=== PATIENT | male | born 1960 | race Caucasian/White ===

== ENCOUNTER → 2018-11-15 11:30 | Outpatient (CLI) | payer OTHER, SELFPAY ==
[2018-11-05 13:09] VITALS: BMI 34.4
[2018-11-15 11:57] VITALS: BP 145/97; PULSE 82; RESP 16; TEMP 36.9; O2SAT 94; BMI 33.7
--- NOTE | 2018-11-15 12:54 | HTC.HP3 ---
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 Comes in for follow up. Having Right hip surgery next week, has replacement plan. Needed Factor replacement for the left hip replacement last yr. Power of Small Products I Assembler: Yes Living Will: Yes Health History: Past Medical History Past Medical History: Bleeding disorder Other Past Medical History: ULCERATIVE COLITIS Past Surgical History Surgical: Colonoscopy,Hip replacement,Rotator cuff repair Family History Paternal Past Medical History: Unknown Maternal Past Medical History: Hypertension Past Medical History (Last Reviewed 11/15/18 @ 11:51 by Aishwarya Will) Ulcerative colitis (Acute) Past Surgical History (Last Reviewed 11/15/18 @ 11:52 by Aishwarya Will) History of colonoscopy (Acute) History of hip replacement (Acute) History of repair of rotator cuff (Acute) Family History (Last Reviewed 11/15/18 @ 11:52 by Aishwarya Will) Mother Hypertension Allergies/Adverse Reactions: Allergy/AdvReac Type Severity Reaction Status Date / Time aspirin AdvReac Severe BLEEDING Verified 11/15/18 11:51 Risk Factors Social History Social History: No changes Smoking Status Former smoker Tobacco Risk Data: Tobacco Risk Smoking Status Former smoker Type of tobacco: Smokeless tobacco usage: Never Items/Day: Year started: Years used: 20 Counseled to quit/cut down: Reason for no counseling performed: Reason for no pharmacotherapy: Tobacco use comments: Passive smoke exposure: No Substance Risk Drug use: No Caffeine use [drinks/day]: 4 Alcohol use: Yes Type of alcohol: shot of whiskey rarely Drinks per day: Has patient felt the need to cut down: Has the patient been annoyed by complaints: Has the patient felt guilty about drinking: Has the patient needed an eye mortgage clerk in the mornings: Comments: Review of Systems Constitutional:: Denies: Fever, Sweats, Weight loss, Appetite change, Chills Cardiovascular:: Denies: Chest pain, Palpitations, Dyspnea on exertion, Orthopnea, PND, Shortness of breath Respiratory: Denies: Cough, Hemoptysis, Shortness of Breath, Wheezing Gastrointestinal:: Denies: Abdominal pain, Nausea, Vomiting, Diarrhea, Constipation, Hematochezia Genitourinary: Denies: Dysuria, Hematuria, 15, Flank pain Musculoskeletal:: Reports: Joint stiffness - R hip. Vital Signs Height 5 ft 10 in Weight: 106.776 kg Weight in Pounds 235.4 lbs Pulse Ox 94 Temperature 98.4 F Pulse Rate 82 Respiratory Rate 16 Blood Pressure 145/97 Blood Pressure Position Sitting - Physical Exam General: Alert, Oriented x3, No apparent distress HEENT: Atraumatic, PERRLA, EOMI, Normocephalic Oropharynx:: Dry mucosa Neck:: Supple, Trachea midline. Negative for: JVD, bilateral Cardiac:: Regular rate, Regular rhythm, Normal S1, Normal S2. Negative for: Murmur Lungs: Clear to auscultation, Excusion symmetrical. Negative for: Rhonchi, Wheezes Abdomen:: Bowel sounds x 4, Soft, Non-tender, Non-distended. Negative for: Hepatosplenomegaly Neurological: - - Walking with a R limp. Lymphatics:: Negative for: Cervical lymphadenopathy, Supraclavicular lymphadenopathy, Axillary lymphadenopathy Therapy ROM Screening - Subjective Subjective:: Pt states he is doing well- states sunday he is having THR. - Objective Right shoulder flex:: 165 Left shoulder flex:: 163 Right shoulder extension:: 50 Left shoulder extension:: 50 Right elbox flex/ext:: 140/0 Left elbox flex/ext:: 140/0 Right elbow circumference:: 28cm Left elbow circumference:: 29cm Right forearm sup/pron:: WNL Left forearm sup/pron:: WNL Right knee flexion:: 110 Left knee flexion:: 113 Right knee circumference:: 38cm Left knee circumference:: 38.5cm Right ankle dorsiflexion:: 20 Left ankle dorsiflexion:: 20 Right ankle Plan-flex:: 45 Left ankle Plan-flex:: 45 Right ankle circumference:: 25cm Left ankle circumference:: 25cm Right hip flexion:: 70 Left hip flexion:: 85 Right hip extension:: 15 Left hip extension:: 15 - Assessment Assessment:: Pt demo ROM WFL. right hip limited but having sx Sunday. Assessment and Plan Hemophilia B. Right arthropathy, for hip replacement. Plan is to do expectant management with factor replacement as needed. Follow replacement plan after surgery. RTC 1 yr. Primary Care Provider: Rob Rodriguez, WAREHOUSE SHIFT SUPERVISOR-C Referring Provider:
--- NOTE | 2018-11-15 13:02 | WMO.HTC_ITS ---
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 Comes in for follow up. Having Right hip surgery ne xt week, has replacement plan. Needed Factor replacement for the left hip replacement last yr. Power of Project Controls Scheduler: Yes Living Will: Yes Health History: Past Medical History Past Medical History: Bleeding disorder Other Past Medical History: ULCERATIVE COLITIS Past Surgical History Surgical: Colonoscopy,Hip replacement,Rotator cuff repair Family History Paternal Past Medical History: Unknown Maternal Past Medical History: Hypertension Past Medical History (Last Reviewed 11/15/18 @ 11:51 by Aishwarya Will) Ulcerative colitis (Acute) Past Surgical History (Last Reviewed 11/15/18 @ 11:52 by Aishwarya Will) History of colonoscopy (Acute) History of hip replacement (Acute) History of repair of rotator cuff (Acute) Family History (Last Reviewed 11/15/18 @ 11:52 by Aishwarya Will) Mother Hypertension Allergies/Adverse Reactions: Allergy/AdvReac Type Severity Reaction Status Date / Time aspirin AdvReac Severe BLEEDING Verified 11/15/18 11:51 Risk Factors Social History Social History: No changes Smoking Status Former smoker Tobacco Risk Data: Tobacco Risk Smoking Status Former smoker Type of tobacco: Smokeless tobacco usage: Never Items/Day: Year started: Years used: 20 Counseled to quit/cut down: Reason for no counseling performed: Reason for no pharmacotherapy: Tobacco use comments: Passive smoke exposure: No Substance Risk Drug use: No Caffeine use [drinks/day]: 4 Alcohol use: Yes Type of alcohol: shot of whiskey rarely Drinks per day: Has patient felt the need to cut down: Has the patient been annoyed by complaints: Has the patient felt guilty about drinking: Has the patient needed an eye oyster opener in the mornings: Comments: Review of Systems Constitutional:: Denies: Fever, Sweats, Weight loss, Appetite change, Chills Cardiovascular:: Denies: Chest pain, Palpitations, Dyspnea on exertion, Orthopnea, PND, Shortness of breath Respiratory: Denies: Cough, Hemoptysis, Shortness of Breath, Wheezing Gastrointestinal:: Denies: Abdominal pain, Nausea, Vomiting, Diarrhea, Constipation, Hematochezia Genitourinary: Denies: Dysuria, Hematuria, 15, Flank pain Musculoskeletal:: Reports: Joint stiffness - R hip. Vital Signs Height 5 ft 10 in Weight: 106.776 kg Weight in Pounds 235.4 lbs Pulse Ox 94 Temperature 98.4 F Pulse Rate 82 Respiratory Rate 16 Blood Pressure 145/97 Blood Pressure Position Sitting - Physical Exam General: Alert, Oriented x3, No apparent distress HEENT: Atraumatic, PERRLA, EOMI, Normocephalic Oropharynx:: Dry mucosa Neck:: Supple, Trachea midline. Negative for: JVD, bilateral Cardiac:: Regular rate, Regular rhythm, Normal S1, Normal S2. Negative for: Murmur Lungs: Clear to auscultation, Excusion symmetrical. Negative for: Rhonchi, Wheezes Abdomen:: Bowel sounds x 4, Soft, Non-tender, Non-distended. Negative for: Hepatosplenomegaly Neurological: - - Walking with a R limp. Lymphatics:: Negative for: Cervical lymphadenopathy, Supraclavicular lymphadenopathy, Axillary lymphadenopathy Therapy ROM Screening - Subjective Subjective:: Pt states he is doing well- states sunday he is having THR. - Objective Right shoulder flex:: 165 Left shoulder flex:: 163 Right shoulder extension:: 50 Left shoulder extension:: 50 Right elbox flex/ext:: 140/0 Left elbox flex/ext:: 140/0 Right elbow circumference:: 28cm Left elbow circumference:: 29cm Right forearm sup/pron:: WNL Left forearm sup/pron:: WNL Right knee flexion:: 110 Left knee flexion:: 113 Right knee circumference:: 38cm Left knee circumference:: 38.5cm Right ankle dorsiflexion:: 20 Left ankle dorsiflexion:: 20 Right ankle Plan-flex:: 45 Left ankle Plan-flex:: 45 Right ankle circumference:: 25cm Left ankle circumference:: 25cm Right hip flexion:: 70 Left hip flexion:: 85 Right hip extension:: 15 Left hip extension:: 15 - Assessment Assessment:: Pt demo ROM WFL. right hip limited but having sx Sunday. Assessment and Plan Hemophilia B. Right arthropathy, for hip replacement. Plan is to do expectant management with factor replacement as needed. Follow replacement plan after surgery. RTC 1 yr. Primary Care Provider: Rob Rodriguez, C DEVELOPER-C Referring Provider:
== END ==
PROVIDERS: Family Provider Nurse Practitioner Family; PCP Nurse Practitioner Family; Visit Provider Internal Medicine Medical Oncology
DX: D67 Hereditary factor IX deficiency (principal)

== ENCOUNTER → 2018-12-13 | Outpatient (CLI) | payer OTHER, SELFPAY ==
[2018-11-05 13:09] VITALS: BP 159/87; PULSE 84; RESP 16; TEMP 36.6; O2SAT 94; BMI 34.4
--- NOTE | 2018-11-05 13:15 | SDCEKG_ITS ---
Test Reason : Blood Pressure : / mmHG Vent. Rate : 085 BPM Atrial Rate : 085 BPM P-R Int : 166 ms QRS Dur : 098 ms QT Int : 376 ms P-R-T Axes : 037 057 013 degrees QTc Int : 447 ms Normal sinus rhythm Cannot rule out Inferior infarct , age undetermined Abnormal ECG Confirmed by NIELS SPANGLER, JORGE ALBERTO ([id number]), magazine editor YUE RAMOS ([id number]) on 11/08/2018 3:38:05 PM Referred By: Brett Glover Confirmed By:JORGE ALBERTO BOWSER MD
[2018-11-05 14:00] LABS: Hematocrit 45.2 % (40-54); Hemoglobin 15.2 g/dl (13.0-16.5); Mean Corp Hgb Conc 33.6 g/gl (32-36); Mean Corpuscular Hgb 29.2 pg (27.0-32.0); Mean Corpuscular Volume 86.9 fL (80-94); Mean Platelet Vol. 10.2 fl (6.2-12.0); Platelet Count 188 K/mm3 (150-450); RBC Distribution Width CV 13.5 % (11.6-14.6); RBC Distribution Width SD 42.6 fl (35.1-43.9); White Blood Count 4.7 K/mm3 (4.4-11.0)
[2018-11-05 14:02] LABS: Scan Indicated on CBC? Y/N NO
[2018-11-05 14:03] LABS: International Normalized Ratio 0.9; Prothrombin Time (Protime)PT. 12.2 SECONDS (11.7-14.9)
[2018-11-05 14:05] LABS: Partial Thromboplast Time 42.3 Seconds (24.1-36.2)
[2018-11-05 14:13] LABS: AST(SGOT) 28 U/L (15-37); Alanine Aminotransfer ALT/SGPT 34 U/L (16-61); Albumin, Serum 3.8 g/dL (3.2-5.0); Alkaline Phosphatase 63 U/L (45-117); Anion Gap 7 (5-15); BUN 12 mg/dL (7-18); BUN/Creat Ratio 12.3 RATIO (10-20); Calcium,Total 8.8 mg/dL (8.5-10.1); Chloride 100 mmol/L (98-107); Creatinine, Serum 0.98 mg/dL (0.70-1.30); EST Glomerular Filtration Rate 84 mL/min (>60); Est Glom Filt Rate - Afr Amer 102 mL/min (>60); Globulin 4.4 g/dL (2.2-4.2); Glucose 93 mg/dL (74-106); Potassium 3.2 mmol/L (3.5-5.1); Protein, Total 8.2 g/dL (6.4-8.2); Sodium Level 138 mmol/L (136-145)
[2018-11-05 14:41] LABS: Thyroid Stim Hormone (TSH) 2.47 uIU/mL (0.358-3.74)
[2018-11-15 11:57] VITALS: BMI 33.7
--- NOTE | 2018-11-28 11:14 | CASEMGMT ---
Call placed to patient to discuss discharge needs after upcoming surgery. Per patient, surgery was canceled. Arlen Cruz LPN Clinical Support
== END | disposition home or self-care (01) ==
LOC: SDC 10:37
PROVIDERS: Anesthesiology; Family Provider Nurse Practitioner Family; PCP Nurse Practitioner Family; Referring Provider Orthopaedic Surgery; Visit Provider Orthopaedic Surgery
DX: Z01.810 Encounter for preprocedural cardiovascular examination (principal); Z01.812 Encounter for preprocedural laboratory examination; Z53.9 Procedure and treatment not carried out, unspecified reason; R94.31 Abnormal electrocardiogram [ECG] [EKG]
CPT/HCPCS: 80048; 80076; 84443; 85027; 85610; 85730; 87077; 87081; 93005

== ENCOUNTER → 2023-12-14 | Outpatient (CLI) | payer OTHER, SELFPAY ==
--- OUTSIDE RECORDS SUMMARY | 2023-12-14 10:27 | XMS RPT_ITS | CCD ---
Author Name Unknown Address [address] [place] [address] Organization [facility] Care Team Providers Care Application Packager Name Role Phone LARA RAMOS DR Admitting Unavailable LARA RAMOS DR Attending Unavailable LARA RAMOS DR Primary Care Unavailable SERENE ATKINSON Consulting Unavailable PROVIDER, UNKNOWN Consulting Unavailable LARA RAMOS DR Admitting Unavailable LARA RAMOS DR Attending Unavailable LARA RAMOS DR Primary Care Unavailable SERENE ATKINSON Consulting Unavailable PROVIDER, UNKNOWN Consulting Unavailable LARA RAMOS DR Admitting Unavailable LARA RAMOS DR Attending Unavailable LARA RAMOS DR Primary Care Unavailable SERENE ATKINSON Consulting Unavailable PROVIDER, UNKNOWN Consulting Unavailable LARA RAMOS DR Admitting Unavailable LARA RAMOS DR Attending Unavailable LARA RAMOS DR Primary Care Unavailable SERENE ATKINSON Consulting Unavailable PROVIDER, UNKNOWN Consulting Unavailable LARA RAMOS DR Admitting Unavailable LARA RAMOS DR Attending Unavailable LARA RAMOS DR Primary Care Unavailable SERENE ATKINSON Consulting Unavailable SERENE ATKINSON D Referring Unavailable PROVIDER, UNKNOWN Consulting Unavailable MAINOR ONEAL MD Admitting Unavailable MAINOR ONEAL MD Attending Unavailable MAINOR ONEAL MD Primary Care Unavailable SERENE ATKINSON Consulting Unavailable PROVIDER, UNKNOWN Consulting Unavailable MAINOR ONEAL MD Admitting Unavailable MAINOR ONEAL MD Attending Unavailable MAINOR ONEAL MD Primary Care Unavailable SERENE ATKINSON Consulting Unavailable PROVIDER, UNKNOWN Consulting Unavailable LARA RAMOS DR Admitting Unavailable LARA RAMOS DR Attending Unavailable LARA RAMOS DR Primary Care Unavailable SERENE ATKINSON Consulting Unavailable PROVIDER, UNKNOWN Consulting Unavailable DEMETRIOSERENE KIM APRN, CNP Primary Care Phys ician JEAN MARIE DEMARCO Attending Unavailable SERENE ATKINSON Primary Care Unavailable DEMETRIO SERENE Referring Unavailable DEMETRIO FERREIRA - RUDOLPH, SERENE Robles Attending U yasmany ATKINSON APRN - RUDOLPH, SERENE Robles Primary Care U yasmany ATKINSON APRN - RUDOLPH, SERENE Robles Attending U yasmany ATKINSON APRN - RUDOLPH, SERENE Robles Primary Care U karenailable DEMETRIO SALCEDON - DIESEL ENGINE PIPE FITTER, SERENE Robles Primary Care U karenailable DEMETRIO FERREIRA - RUDOLPH, SERENE Robles Attending U [facility] Allergies Allergy Classification Reported Allergen(s) Allergy Type Date of Onset Reaction(s) Facility (7 sources) Aspirin; Translations: [aspirin] Drug Allergy Contraindicated (qualifier value) [facility] Work Phone: Medications Current Medications Medication Drug Class(es) Dates Sig (Normalized) Sig (Original) Asacol HD 800 mg oral delayed release tablet (1 source) Start: 05-09-2018 take 3 capsules by mouth twice daily Asacol HD 800 mg oral delayed release tablet 3 cap(s), Oral, BID, # 252 tab(s), 0 Refill(s) Start Date: 05/09/18 Status: Ordered cholecalciferol 1.25 mg oral capsule (1 source) Vitamin D Start: 10-11-2023 End: 04-08-2024 cholecalciferol 1250 mcg (50,000 intl units) oral capsule Dose : 50,000 International_Unit = 1 cap(s), Oral, qmonth, # 4 cap(s), 1 Refill(s), Pharmacy: [facility], Vitamin D deficiency, 176.5, cm, 10/11/23 7:45:00 EST, Height, kg, 10/11/23 7:45:00 EST, Dosing Weight Start Date: 10/11/23 Stop Date: 04/08/24 Status: Ordered esomeprazole 40 mg delayed release oral capsule (6 sources) Proton Pump Inhibitor Start: 10-11-2023 End: 04-08-2024 esomeprazole 40 mg oral delayed release capsule Dose : 40 mg = 1 cap(s), Oral, qDay, # 90 cap(s), 1 Refill(s), Pharmacy: [facility], GERD (gastroesophageal reflux disease), 176.5, cm, 10/11/23 7:45:00 EST, Height, kg, 10/11/23 7:45:00 EST, Dosing Weight Start Date: 10/11/23 Stop Date: 04/08/24 Status: Ordered Completed/Discontinued Medications Medication Drug Class(es) Dates Sig (Normalized) Sig (Original) Vitamin D3 25 mcg (1000 intl units) oral tablet (1 source) Start: 03-29-2023 End: 04-28-2023 Vitamin D3 25 mcg (1000 intl units) oral tablet Dose : 1,000 International_Unit = 1 tab(s), Oral, qDay, OTC, # 30 tab(s), 0 Refill(s), other reason (Rx), Vitamin D deficiency Start Date: 03/29/23 Stop Date: 04/28/23 Status: Ordered Problems Problem Classification Problem Date Documented Da te Episodic/Chronic Coagulation and hemorrhagic disorders (12 sources) Hereditary factor IX deficiency; 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] Onset: 9 03-31-2016 Chronic Disorders of lipid metabolism (10 sources) Hyperlipidemia, unspecified; Translations: [Hyperlipidemia] Onset: 9 05-13-2019 Chronic Disorders of lipid metabolism (1 source) Pure hypercholesterolemia, unspecified; Translations: [Pure hypercholesterolemia, unspecified] Onset: 9 Esophageal disorders (7 sources) Gastroesophageal reflux disease 05-12-2019 Chronic Essential hypertension (10 sources) Essential (primary) hypertension; Translations: [Hypertensive disorder] Onset: 9 05-13-2019 Chronic Fluid and electrolyte disorders (2 sources) Hypokalemia; Translations: [Hypokalemia] Onset: 9 Episodic Nutritional deficiencies (5 sources) Vitamin D deficiency 01-26-2022 Chronic Osteoarthritis (10 sources) Unilateral primary osteoarthritis, right hip; Translations: [Osteoarthritis of multiple joints ] Onset: 9 05-13-2019 Chronic Other connective tissue disease (3 sources) Pain in right lower leg; Translations: [Pain in right lower leg] Onset: 9 Episodic Other gastrointestinal disorders (7 sources) H/O: ulcerative colitis 05-13-2019 Episodic Other hematologic conditions (7 sources) H/O: coagulation defect 05-13-2019 Episodic Other non-traumatic joint disorders (2 sources) Pain in right hip; Translations: [Pain in right hip] Onset: 9 Episodic Other nutritional; endocrine; and metabolic disorders (2 sources) Body mass index 30+ - obesity 03-29-2023 Chronic Other nutritional; endocrine; and metabolic disorders (5 sources) Overweight 05-12-2019 Episodic Other screening for suspected conditions (not mental disorders or infectious disease) (2 sources) Encounter for screening for malignant neoplasm of prostate; Translations: [Encounter for screening for malignant neoplasm of prostate] Onset: 3 Episodic Regional enteritis and ulcerative colitis (8 sources) Ulcerative colitis, unspecified, without complications; Translations: [Ulcerative colitis] Onset: 9 05-13-2019 Chronic Screening and history of mental health and substance abuse codes (1 source) Personal history of nicotine dependence; Translations: [Personal history of nicotine dependence] Onset: 9 Episodic Thyroid disorders (9 sources) Hypothyroidism; Translations: [Hypothyroidism, unspecified] Onset: 3 05-09-2018 Chronic Thyroid disorders (1 source) Disorder of thyroid, unspecified; Translations: [Disorder of thyroid, unspecified] Onset: 9 Episodic Unclassified (7 sources) Patient encounter status 06-01-2020 Unclassified (7 sources) Non-smoker 01-26-2022 Results Test Name Value Interpretation Reference Range Facil ity Encounters Encounter Date Encounter Type Care Provider Facility Start: 10-11-2023 End: 10-16-2023 ambulatory SERENE ATKINSON GEOSPATIAL INFORMATION SCIENTIST - DIESEL ENGINE PIPE FITTER Facility:B Start: 10-11-2023 End: 10-15-2023 Outreach Lab SERENE ATKINSON GEOSPATIAL INFORMATION SCIENTIST - DIESEL ENGINE PIPE FITTER [facility] Start: 09-20-2023 End: 09-25-2023 ambulatory SERENE ATKINSON GEOSPATIAL INFORMATION SCIENTIST - DIESEL ENGINE PIPE FITTER Facility:B Start: 09-20-2023 End: 09-24-2023 Outreach Lab SERENE ATKINSON GEOSPATIAL INFORMATION SCIENTIST - DIESEL ENGINE PIPE FITTER [facility] Start: 08-24-2023 ambulatory JEAN MARIE Rubio ty:[facility]IP[facility] Start: 03-22-2023 End: 03-23-2023 ambulatory SERENE ATKINSON GEOSPATIAL INFORMATION SCIENTIST - DIESEL ENGINE PIPE FITTER Facility:B Start: 03-22-2023 End: 03-22-2023 Patient encounter procedure SERENE ATKINSON GEOSPATIAL INFORMATION SCIENTIST - DIESEL ENGINE PIPE FITTER [facility] Start: 09-14-2022 End: 09-18-2022 Outreach Lab SERENE ATKINSON GEOSPATIAL INFORMATION SCIENTIST - DIESEL ENGINE PIPE FITTER [facility] Start: 09-14-2022 End: 09-18-2022 Outreach Lab SERENE ATKINSON GEOSPATIAL INFORMATION SCIENTIST - DIESEL ENGINE PIPE FITTER [facility] Start: 01-19-2022 End: 01-23-2022 Outreach Lab SERENE ATKINSON GEOSPATIAL INFORMATION SCIENTIST - DIESEL ENGINE PIPE FITTER [facility] Start: 07-22-2021 End: 07-26-2021 Outreach Lab SERENE ATKINSON GEOSPATIAL INFORMATION SCIENTIST - DIESEL ENGINE PIPE FITTER [facility] Start: 03-13-2019 End: 03-13-2019 Patient encounter procedure LARA RAMOS [facility] Start: 03-10-2019 End: 03-11-2019 Evaluation and management of inpatient LARA RAMOS [facility] Start: 03-07-2019 End: 03-07-2019 Patient encounter procedure MAINOR SPANGLER [facility] Start: 03-05-2019 End: 03-05-2019 Patient encounter procedure MAINOR SPANGLER [facility] Start: 02-25-2019 Encounter for other preprocedural examination LARA RAMOS [facility] Start: 02-25-2019 End: 02-25-2019 Patient encounter procedure LARA RAMOS [facility] Start: 12-26-2018 End: 12-26-2018 Patient encounter procedure LARA RAMOS [facility] Start: 12-17-2018 Encounter for preprocedural cardiovascular examination LARA RAMOS [facility] Start: 12-17-2018 End: 12-17-2018 Patient encounter procedure LARALAN RAMOS [facility] Encounter for other preprocedural examination LARA RAMOS [facility] Encounter for preprocedural cardiovascular examination LARA RAMOS [facility] Procedures Date Procedure Procedure Detail Performing Clinician Start: 03-10-2019 Insertion of Infusion Device into Superior Vena Cava, Percutaneous Approach LARA RAMOS Start: 03-10-2019 Replacement of Right Hip Joint with Synthetic Substitute, Uncemented, Open Approach LARA RAMOS Start: 10-08-2016 Colonoscopy SERENE RIOSPKINS GEOSPATIAL INFORMATION SCIENTIST - DIESEL ENGINE PIPE FITTER Start: 10-08-2015 Esophagogastroduodenoscopy SERENE RIOSLACEY BEDOYA GEOSPATIAL INFORMATION SCIENTIST - DIESEL ENGINE PIPE FITTER Start: 10-08-2012 Repair of hip SERENE RIOSPKINS GEOSPATIAL INFORMATION SCIENTIST - DIESEL ENGINE PIPE FITTER Payers Date Payer Category Payer Unknown [id number] 1960 Unknown [id number] 2.16.8 [id number] 1960 Unknown [id number] 2.16.8 [id number] 1960 Unknown [id number] 2.16.8 [id number] 1960 Unknown [id number] 2.16.84 [id number] 1960 Unknown [id number] 2.16.84 [id number] 1960 Unknown [id number] 2.16.84 [id number] 1960 Unknown [id number] 2.16.84 [id number] 1960 Unknown [id number] 2.16.84 [id number] 1960 Unknown [id number] 2.16.84 [id number] 1960 Unknown [id number] 2.16.84 [id number] 1960 Unknown [id number] 2.16.84 [id number] Unknown Unknown 116 Social History Date Type Detail Facility Start: 05-13-2019 End: 10-11-2023 Ex-smoker (finding) [facility] Evaluation + Plan note Note Date & Type Note Facility Evaluation + Plan note Future Appointments Appointment Date:07/28/2021 08:20:00 AM Scheduled Provider:SERENE ATKINSON APRN, CNP Location:[facility] Appointment Type:PC OV Follow Up [facility] Evaluation + Plan note Note Date & Type Note Facility Evaluation + Plan note Future Appointments Appointment Date:01/26/2022 08:20:00 AM Scheduled Provider:SERENE ATKINSON APRN - RUDOLPH Location:[facility] Appointment Type:PC OV Follow Up [facility] Evaluation + Plan note Laboratory Note Date & Type Note Facility Evaluation + Plan note Future Appointments Appointment Date:09/21/2022 09:40:00 AM Scheduled Provider:SERENE ATKINSON APRN - DIESEL ENGINE PIPE FITTER Location:[facility] Appointment Type:PC OV Follow Up Future Scheduled TestsMicroalbumin Level Urine 07/28/22 [facility] Evaluation + Plan note Laboratory Note Date & Type Note Facility Evaluation + Plan note Future Appointments Appointment Date:03/29/2023 08:20:00 AM Scheduled Provider:SERENE ATKINSON APRN - DIESEL ENGINE PIPE FITTER Location:[facility] Appointment Type:PC OV Follow Up Diagnostic Tests PendingVitamin D Level 03/22/23 Future Scheduled TestsMicroalbumin Level Urine 07/28/22 [facility] Evaluation + Plan note Laboratory Note Date & Type Note Facility Evaluation + Plan note Future Appointments Appointment Date:10/11/2023 07:40:00 AM Scheduled Provider:SERENE ATKINSON APRN, CNP Location:[facility] Appointment Type:PC OV Follow Up Future Scheduled TestsLyme Disease Serology w/Reflex 09/20/23 [facility] Evaluation + Plan note Laboratory Note Date & Type Note Facility Evaluation + Plan note Future Appointments Appointment Date:05/08/2024 08:00:00 AM Scheduled Provider: Location:[facility] Appointment Type:PC Nurse Lab Appointment Date:05/15/2024 07:00:00 AM Scheduled Provider:SERENE ATKINSON APRN, CNP Location:[facility] Appointment Type:PC OV Follow Up Future Scheduled TestsThyroid Stimulating Hormone 04/10/24Free T4 04/10/24Complete Blood Count 04/10/24Lipid Profile 04/10/24Albumin/Creatinine Ratio, Random Urine 04/10/24Vitamin D Level 04/10/24Complete Metabolic Panel 04/10/24 [facility] Hospital course Narrative Note Date & Type Note Facility Hospital course Narrative No data available for this section [facility] Hospital Discharge instructions Note Date & Type Note Facility Hospital Discharge instructions No data available for this section [facility] Progress note Note Date & Type Note Facility Progress note No data available for this section [facility] Summary Purpose Family History No Family History Records FoundNo Family History Records Found No data available for this section No data available for this section No Family History Records Found Advance Directives No Advanced Directives Records FoundNo Advanced Directives Records FoundNo Advanced Directives Records Found Hospital Course Note [facility] DISCHARGE SUMMARY NAME ACCOUNT SEX AGE ADMIT DISCHARGE PT MED. RECORD# NUMBER DATE DATE TYPE MONICA DRUMMOND [id number] M 58 03/10/19 1 M [id number] ROOM: [facility] DATE OF : 1960 DICTATING PHYSICIAN: Lara Ramos PROGRESS NOTE/DISCHARGE SUMMARY FINAL DIAGNOSES: 1. Right hip replacement for arthritis. 2. History of hemophilia. 3. Hypertension. 4. Ulcerative colitis. 5. High cholesterol. 6. Thyroid disease. PROCEDURES: Right hip replacement and PICC line insertion on March 10, 2019. HOSPITAL COURSE: The patient is postoperative day #1 from right hip replacement. He is feeling great. He denies chest pain. He denies shortness of breath. No current pain. He did have some pain yesterday ambulating. He feels ready for discharge to home today. He understands how to use his factor and his PICC line. He has been through hip replacement surgery before on the left. PHYSICAL EXAMINATION: He is seen with his present. He has been afebrile. TC is 97.9. Pulse oximetry is 93% on room a (more content not included)... Additional Source Comments (unrecognized sect ion and content) No Status Records FoundNo Status Records FoundNo Status Records Found INFORMATION SOURCE (unrecogn ized section and content) DATE CREATED AUTHOR AUTHOR'S ORGANIZ ATION 09/12/2023 [facility] DATE CREATED AUTHOR AUTHOR'S ORGANIZ ATION 10/16/2023 [facility] [place] Care Team (unrecognized sect ion and content) Personnel Name: SERENE ATKINSON APRN, CNP Address: [address] [place] [address]- Care Team Personnel Name: SERENE ATKINSON APRN, CNP Position: P4 Advanced Scraper Loader Operator Member Role: Primary Care Physician Address: Address: [address] [place] [address]- Care Team Related Persons Name: CLIFTON DRUMMOND Name: JEN DRUMMOND Address: [id number] [place], [place] [id number] Care Team Personnel Name: SERENE ATKINSON APRN, CNP Position: P4 Advanced Scraper Loader Operator Member Role: Primary Care Physician Address: Address: [address] [place] [address]- Care Team Related Persons Name: CLIFTON DRUMMOND Name: JEN DRUMMOND Address: Home [address] [place], [place] [id number] Care Team Personnel Name: SERENE ATKINSON GEOSPATIAL INFORMATION SCIENTIST - DIESEL ENGINE PIPE FITTER Position: P4 Advanced Scraper Loader Operator Member Role: Primary Care Physician Address: Address: [address] [place] [address] Care Team Related Persons Name: CLIFTON DRUMMOND Name: JEN DRUMMOND Address: [address] [phone] [place] Care Team (unrecognized sect ion and content) Care Team Personnel Name: SERENE ATKINSON GEOSPATIAL INFORMATION SCIENTIST - DIESEL ENGINE PIPE FITTER Position: P4 Advanced Practice Nurse Member Role: Primary Care Physician Address: Address: [address] [place] [address] Care Team Related Persons Name: CLIFTON DRUMMOND Name: JEN DRUMMOND Address: [address] [phone] [place] Care Team Personnel Name: SERENE ATKINSON GEOSPATIAL INFORMATION SCIENTIST - DIESEL ENGINE PIPE FITTER Position: P4 Advanced Practice Nurse Member Role: Primary Care Physician Address: Address: [address] [place] [address] Care Team Related Persons Name: CLIFTON DRUMMOND Name: JEN DRUMMOND Address: [address] [phone] [place] FOR RECORDS PERTAINING TO PATIENTS WHO ARE OR HAVE BEEN ENROLLED IN A CHEMICAL DEPENDENCY/SUBSTANCEABUSE PROGRAM, SOME INFORMATION MAY BE OMITTED. This clinical summary was aggregated from multiple sources. Caution should be exercised in using it in the provision of clinical care. This summary normalizes information from multiple sources, and as a consequence, information in this document may materially change the coding, format and clinical context of patient data. In addition, data may be omitted in some cases. CLINICAL DECISIONS SHOULD BE BASED ON THE PRIMARY CLINICAL RECORDS. [employer] provides no warranty or guarantee of the accuracy or completeness of information in this document.
[2023-12-14 12:02] LABS: Absolute Lymphocyte Count 1.37 X10^3/uL (0.83-4.51); Absolute Neutrophil Count 4.5 X10^3/uL (2.0-7.7); Basophil# 0.03 X10^3/uL; Basophil% 0.5 % (0-1); Hematocrit 47.3 % (40-54); Hemoglobin 14.9 g/dL (13.0-16.5); Lymphocyte # 1.37 X10^3/ul (0.83-4.51); Lymphocyte % 21.3 % (19-41); Mean Corp Hgb Conc 31.5 g/dL (32-36); Mean Corpuscular Hgb 26.6 pg (27.0-32.0); Mean Corpuscular Volume 84.3 fL (80-94); Monocyte# 0.55 X10^3/uL; Monocyte% 8.6 % (0-10); NRBC Flagged by Analyzer 0 % (0-5); Neutrophil # 4.46 X10^3/uL (2.7-7.7); Neutrophil % 69.3 % (47-70); Platelet Count 275 K/mm3 (150-450); RBC Distribution Width CV 15.4 % (11.6-14.6); RBC Distribution Width SD 46.5 fl (35.1-43.9); Red Blood Count 5.61 M/mm3 (4.6-6.2); White Blood Count 6.4 K/mm3 (4.4-11.0)
[2023-12-14 12:10] LABS: Erythrocyte Sedimentation Rate 29 mm/hr (0-20)
[2023-12-14 12:30] LABS: ALB/GLOB Ratio 0.8 RATIO (0.9-2.4); AST(SGOT) 21 U/L (15-37); Alanine Aminotransfer ALT/SGPT 27 U/L (16-61); Albumin, Serum 3.6 g/dL (3.2-5.0); Alkaline Phosphatase 55 U/L (45-117); Anion Gap 6 (5-15); BUN 14 mg/dL (7-18); Calcium,Total 9.1 mg/dL (8.5-10.1); Chloride 103 mmol/L (98-107); Creatinine, Serum 0.88 mg/dL (0.70-1.30); EST Glomerular Filtration Rate 94 mL/min (>60); Est Glom Filt Rate - Afr Amer 114 mL/min (>60); Globulin 4.4 g/dL (2.2-4.2); Glucose 89 mg/dL (74-106); Potassium 3.8 mmol/L (3.5-5.1); Rheumatoid Factor < 10.0 IU/mL (<15); Sodium Level 138 mmol/L (136-145)
[2023-12-14 13:00] LABS: Hepatitis B Surface Antibody Reactive; Hepatitis B Surface Antigen Non-Reactive (Nonreactive); Hepatitis C Antibody Non-Reactive (Nonreactive)
[2023-12-15 12:09] LABS: CCP IgG Antibodies 86 units (0-19)
[2023-12-17 12:09] LABS: ANTINUCLEAR ANTIBODIES DIRECT Negative (Negative)
== END | disposition home or self-care (01) ==
LOC: MTLAB 10:14
PROVIDERS: PCP Nurse Practitioner Family; Referring Provider Internal Medicine Rheumatology; Visit Provider Internal Medicine Rheumatology
DX: M07.60 Enteropathic arthropathies, unspecified site (principal); K51.90 Ulcerative colitis, unspecified, without complications
CPT/HCPCS: 36415; 80053; 85025; 85652; 86038; 86140; 86200; 86431; 86706; 86803; 87340

== ENCOUNTER → 2024-06-16 | Outpatient (CLI) | payer OTHER, SELFPAY ==
--- NOTE | 2024-06-16 10:53 | US_ITS ---
INDICATION: ELEVATED LIVER ENZ EXAMINATION: Ultrasound US Abdomen Limited (quadrant) TECHNIQUE: Quarles scale and color doppler imaging was performed of the right upper quadrant. COMPARISON: FINDINGS: LIVER: There is fatty echotexture measuring 19.3 cm. No focal hepatic lesion. There is no free fluid. GALLBLADDER AND BILIARY TREE: Possible polyps or nonshadowing calculi. No pericholecystic fluid or gallbladder wall thickening is demonstrated. The proximal common bile duct measures 4 mm, which is within normal limits for the patient''s age. Songraphic George''s sign: PANCREAS: Limited visualization of the pancreas. No pancreatic ductal dilatation. Right kidney: 10.8 x 4.8 x 6.4 cm. The cortex is 13 mm. No hydronephrosis. No shadowing calculi. US/Liver IMPRESSION: Possible polyps are not shadowing calculi in the gallbladder. Enlarged fatty liver. Electronically Signed: Gilbert Adorno DO at 0:01 EDT ,
[2024-06-16 12:43] LABS: ALB/GLOB Ratio 0.9 RATIO (0.9-2.4); AST(SGOT) 29 U/L (15-37); Alanine Aminotransfer ALT/SGPT 36 U/L (16-61); Albumin, Serum 3.6 g/dL (3.2-5.0); Alkaline Phosphatase 52 U/L (45-117); Anion Gap 7 (5-15); BUN 16 mg/dL (7-18); BUN/Creat Ratio 18.2 RATIO (10-20); Calcium,Total 9.4 mg/dL (8.5-10.1); Chloride 104 mmol/L (98-107); Creatinine, Serum 0.88 mg/dL (0.70-1.30); EST Glomerular Filtration Rate 94 mL/min (>60); Est Glom Filt Rate - Afr Amer 113 mL/min (>60); Globulin 4.1 g/dL (2.2-4.2); Glucose 89 mg/dL (74-106); Potassium 3.4 mmol/L (3.5-5.1); Protein, Total 7.7 g/dL (6.4-8.2); Sodium Level 140 mmol/L (136-145)
== END | disposition home or self-care (01) ==
PROVIDERS: PCP Nurse Practitioner Family; Referring Provider Internal Medicine Rheumatology; Visit Provider Internal Medicine Rheumatology
DX: M06.09 Rheumatoid arthritis without rheumatoid factor, multiple sites (principal); Z79.899 Other long term (current) drug therapy
CPT/HCPCS: 36415; 76705; 80053

== ENCOUNTER → 2024-08-18 | Outpatient (CLI) | payer OTHER, SELFPAY ==
[2024-08-18 08:45] LABS: Absolute Lymphocyte Count 1.34 X10^3/uL (0.83-4.51); Absolute Neutrophil Count 3.8 X10^3/uL (2.0-7.7); Basophil# 0.02 X10^3/uL; Basophil% 0.3 % (0-1); Eosinophil# 0.14 X10^3/uL; Eosinophils% 2.4 % (0-5); Hematocrit 45.6 % (40-54); Hemoglobin 15.6 g/dL (13.0-16.5); Lymphocyte # 1.34 X10^3/ul (0.83-4.51); Lymphocyte % 22.6 % (19-41); Mean Corp Hgb Conc 34.2 g/dL (32-36); Mean Corpuscular Volume 87.7 fL (80-94); Mean Platelet Vol. 10.1 fl (6.2-12.0); Monocyte% 10.1 % (0-10); NRBC Flagged by Analyzer 0 % (0-5); Neutrophil % 64.3 % (47-70); Platelet Count 249 K/mm3 (150-450); RBC Distribution Width CV 13.4 % (11.6-14.6); RBC Distribution Width SD 43.2 fl (35.1-43.9); White Blood Count 5.9 K/mm3 (4.4-11.0)
[2024-08-18 09:19] LABS: ALB/GLOB Ratio 0.9 RATIO (0.9-2.4); AST(SGOT) 24 U/L (15-37); Alanine Aminotransfer ALT/SGPT 34 U/L (16-61); Albumin, Serum 3.7 g/dL (3.2-5.0); Alkaline Phosphatase 52 U/L (45-117); Anion Gap 5 (5-15); BUN 18 mg/dL (7-18); Calcium,Total 9.2 mg/dL (8.5-10.1); Chloride 102 mmol/L (98-107); Creatinine, Serum 0.94 mg/dL (0.70-1.30); EST Glomerular Filtration Rate 86 mL/min (>60); Est Glom Filt Rate - Afr Amer 104 mL/min (>60); Glucose 98 mg/dL (74-106); Potassium 3.4 mmol/L (3.5-5.1); Protein, Total 7.7 g/dL (6.4-8.2); Sodium Level 136 mmol/L (136-145)
== END | disposition home or self-care (01) ==
LOC: LAB 08:22
PROVIDERS: PCP Nurse Practitioner Family; Referring Provider Internal Medicine Rheumatology; Visit Provider Internal Medicine Rheumatology
DX: K51.90 Ulcerative colitis, unspecified, without complications (principal); M06.09 Rheumatoid arthritis without rheumatoid factor, multiple sites; Z79.899 Other long term (current) drug therapy; K76.0 Fatty (change of) liver, not elsewhere classified
CPT/HCPCS: 36415; 80053; 85025

== ENCOUNTER → 2024-11-24 | Outpatient (CLI) | payer OTHER, SELFPAY ==
[2024-11-24 10:58] LABS: Absolute Neutrophil Count 2.7 X10^3/uL (2.0-7.7); Basophil# 0.02 X10^3/uL; Basophil% 0.4 % (0-1); Hematocrit 45.6 % (40-54); Hemoglobin 15.5 g/dL (13.0-16.5); Lymphocyte % 28.9 % (19-41); Mean Corpuscular Hgb 29.9 pg (27.0-32.0); Mean Corpuscular Volume 87.9 fL (80-94); Mean Platelet Vol. 9.9 fl (6.2-12.0); Monocyte# 0.46 X10^3/uL; Monocyte% 10.2 % (0-10); NRBC Flagged by Analyzer 0 % (0-5); Neutrophil % 60.1 % (47-70); Platelet Count 228 K/mm3 (150-450); RBC Distribution Width CV 13.4 % (11.6-14.6); RBC Distribution Width SD 43.3 fl (35.1-43.9); Red Blood Count 5.19 M/mm3 (4.6-6.2); White Blood Count 4.5 K/mm3 (4.4-11.0)
[2024-11-24 11:42] LABS: AST(SGOT) 29 U/L (15-37); Alanine Aminotransfer ALT/SGPT 38 U/L (16-61); Albumin, Serum 3.8 g/dL (3.2-5.0); Alkaline Phosphatase 55 U/L (45-117); Anion Gap 8 (5-15); BUN 12 mg/dL (7-18); BUN/Creat Ratio 13.8 RATIO (10-20); Calcium,Total 9.3 mg/dL (8.5-10.1); Chloride 100 mmol/L (98-107); Creatinine, Serum 0.87 mg/dL (0.70-1.30); EST Glomerular Filtration Rate 94 mL/min (>60); Est Glom Filt Rate - Afr Amer 114 mL/min (>60); Glucose 82 mg/dL (74-106); Potassium 3.3 mmol/L (3.5-5.1); Protein, Total 7.8 g/dL (6.4-8.2); Sodium Level 137 mmol/L (136-145)
[2024-11-25 05:07] LABS: Hepatitis B Core Ab Total Negative (Negative)
[2024-11-25 14:47] LABS: HIV - WCH Non-Reactive (Nonreactive); Hepatitis B Surface Antibody Reactive; Hepatitis B Surface Antigen Non-Reactive (Nonreactive); Hepatitis C Antibody Non-Reactive (Nonreactive)
== END | disposition home or self-care (01) ==
PROVIDERS: PCP Nurse Practitioner Family
DX: M06.09 Rheumatoid arthritis without rheumatoid factor, multiple sites (principal); D67 Hereditary factor IX deficiency; K51.90 Ulcerative colitis, unspecified, without complications; Z79.899 Other long term (current) drug therapy; K76.0 Fatty (change of) liver, not elsewhere classified
CPT/HCPCS: 36415; 80053; 82306; 85025; 86703; 86704; 86706; 86803; 87340

== ENCOUNTER → 2025-02-19 | Outpatient (CLI) | payer OTHER, SELFPAY ==
[2025-02-19 09:43] LABS: Absolute Lymphocyte Count 1.28 X10^3/uL (0.83-4.51); Basophil# 0.02 X10^3/uL; Basophil% 0.4 % (0-1); Hematocrit 43.7 % (40-54); Hemoglobin 14.9 g/dL (13.0-16.5); Lymphocyte # 1.28 X10^3/ul (0.83-4.51); Lymphocyte % 26.6 % (19-41); Mean Corp Hgb Conc 34.1 g/dL (32-36); Mean Corpuscular Hgb 29.9 pg (27.0-32.0); Mean Corpuscular Volume 87.6 fL (80-94); Mean Platelet Vol. 10.2 fl (6.2-12.0); Monocyte# 0.49 X10^3/uL; Monocyte% 10.2 % (0-10); NRBC Flagged by Analyzer 0 % (0-5); Neutrophil # 3.01 X10^3/uL (2.7-7.7); Neutrophil % 62.4 % (47-70); Platelet Count 234 K/mm3 (150-450); RBC Distribution Width CV 13.7 % (11.6-14.6); RBC Distribution Width SD 43.3 fl (35.1-43.9); Red Blood Count 4.99 M/mm3 (4.6-6.2); White Blood Count 4.8 K/mm3 (4.4-11.0)
[2025-02-19 10:31] LABS: ALB/GLOB Ratio 1.2 RATIO (0.9-2.4); AST(SGOT) 29 U/L (<=37); Alanine Aminotransfer ALT/SGPT 25 U/L (<=46); Albumin, Serum 4.3 g/dL (3.4-4.8); Alkaline Phosphatase 53 U/L (40-129); Anion Gap 13 (5-15); BUN 14 mg/dL (4-19); BUN/Creat Ratio 16.9 RATIO (10-20); Calcium,Total 9.2 mg/dL (7.6-11.0); Carbon Dioxide 23.9 mmol/L (21.0-32.0); Chloride 100 mmol/L (98-108); Creatinine, Serum 0.84 mg/dL (0.70-1.20); EST Glomerular Filtration Rate 99 (>60); Globulin 3.5 g/dL (2.2-4.2); Glucose 92 mg/dL (70-99); Potassium 3.6 mmol/L (3.3-5.1); Protein, Total 7.7 g/dL (5.9-8.4); Sodium Level 138 mmol/L (133-145)
== END | disposition home or self-care (01) ==
PROVIDERS: PCP Nurse Practitioner Family; Referring Provider Internal Medicine Rheumatology; Visit Provider Internal Medicine Rheumatology
DX: M06.09 Rheumatoid arthritis without rheumatoid factor, multiple sites (principal); K51.90 Ulcerative colitis, unspecified, without complications; Z79.899 Other long term (current) drug therapy; K76.0 Fatty (change of) liver, not elsewhere classified
CPT/HCPCS: 36415; 80053; 85025

== ENCOUNTER → 2025-05-25 | Outpatient (CLI) | payer OTHER, SELFPAY ==
[2025-05-25 09:05] LABS: Hematocrit 43.2 % (40-54); Hemoglobin 14.9 g/dL (13.0-16.5); Immature Granulocytes Count 0.020 X10^3/uL (0.0-0.0); Mean Corp Hgb Conc 34.5 g/dL (32-36); Mean Corpuscular Volume 88.3 fL (80-94); Mean Platelet Vol. 10.2 fl (6.2-12.0); NRBC Flagged by Analyzer 0 % (0-5); Platelet Count 237 K/mm3 (150-450); RBC Distribution Width CV 13.1 % (11.6-14.6); RBC Distribution Width SD 42.4 fl (35.1-43.9); Red Blood Count 4.89 M/mm3 (4.6-6.2); White Blood Count 5.3 K/mm3 (4.4-11.0)
[2025-05-25 09:35] LABS: AST(SGOT) 25 U/L (<=37); Alanine Aminotransfer ALT/SGPT 23 U/L (<=46); Albumin, Serum 4.2 g/dL (3.4-4.8); Alkaline Phosphatase 58 U/L (40-129); Anion Gap 12 (5-15); BUN 14 mg/dL (4-19); BUN/Creat Ratio 15.7 RATIO (10-20); Calcium,Total 9.4 mg/dL (7.6-11.0); Carbon Dioxide 26.6 mmol/L (21.0-32.0); Chloride 99 mmol/L (98-108); Globulin 3.3 g/dL (2.2-4.2); Glucose 101 mg/dL (70-99); Potassium 3.7 mmol/L (3.3-5.1)
== END | disposition home or self-care (01) ==
LOC: LAB 08:45
PROVIDERS: PCP Nurse Practitioner Family; Referring Provider Internal Medicine Rheumatology; Visit Provider Internal Medicine Rheumatology
DX: M06.09 Rheumatoid arthritis without rheumatoid factor, multiple sites (principal); Z79.899 Other long term (current) drug therapy
CPT/HCPCS: 36415; 80053; 85025

== ENCOUNTER → 2025-08-27 | Outpatient (CLI) | payer OTHER, SELFPAY ==
[2025-08-27 09:11] LABS: Hematocrit 43.7 % (40-54); Hemoglobin 14.7 g/dL (13.0-16.5); Immature Granulocytes Count 0.020 X10^3/uL (0.0-0.0); Mean Corp Hgb Conc 33.6 g/dL (32-36); Mean Corpuscular Volume 89.4 fL (80-94); Mean Platelet Vol. 10.3 fl (6.2-12.0); NRBC Flagged by Analyzer 0 % (0-5); Platelet Count 224 K/mm3 (150-450); RBC Distribution Width CV 13.6 % (11.6-14.6); RBC Distribution Width SD 44.3 fl (35.1-43.9); Red Blood Count 4.89 M/mm3 (4.6-6.2); White Blood Count 4.9 K/mm3 (4.4-11.0)
[2025-08-27 09:54] LABS: AST(SGOT) 33 U/L (<=37); Alanine Aminotransfer ALT/SGPT 33 U/L (<=46); Albumin, Serum 4.3 g/dL (3.4-4.8); Alkaline Phosphatase 55 U/L (40-129); Anion Gap 11 (5-15); BUN 13 mg/dL (4-19); BUN/Creat Ratio 14.2 RATIO (10-20); Calcium,Total 9.2 mg/dL (7.6-11.0); Carbon Dioxide 27.6 mmol/L (21.0-32.0); Chloride 100 mmol/L (98-108); Globulin 3.4 g/dL (2.2-4.2); Glucose 99 mg/dL (70-99); Iron 51 ug/dL (65-175); Iron Binding Capacity,Unsat 181 ug/dL (228-428); Potassium 3.6 mmol/L (3.3-5.1); Vitamin D,25 Hydroxy 16.7 ng/mL (30-100)
[2025-08-27 10:00] LABS: Iron Binding Capacity,Total 232 ug/dL (250-450)
== END | disposition home or self-care (01) ==
PROVIDERS: PCP Nurse Practitioner Family; Referring Provider Internal Medicine Rheumatology; Visit Provider Internal Medicine Rheumatology
DX: M06.09 Rheumatoid arthritis without rheumatoid factor, multiple sites (principal); Z79.899 Other long term (current) drug therapy
CPT/HCPCS: 36415; 80053; 82306; 83540; 83550; 85025